=== PATIENT | male | born 1960 | race American Indian/Alaskan Native ===

== ENCOUNTER 2018-03-29 09:53 | Day surgery (SDC) | payer MEDICARE, OTHER ==
[2018-03-29] MEDS ORDERED: NACL 0.9% 1000 ML 1,000 ML IV SCH (10:00)
--- NOTE | 2018-03-29 11:44 | Anesthesia Day of Surgery ---
Anesthesia Day of Surgery - Day of Surgery Patient Examined: Yes Patient H&P Reviewed: Yes Patient is NPO: Yes Beta Blockers: No Cardiac Clearance: No Pulmonary Clearance: No
--- NOTE | 2018-03-29 11:45 | Anesthesia Consultation ---
Anesthesia Consult and Med Hx Date of service: 03/29/18 - Airway Anesthetic Teeth Evaluation: Good ROM Head & Neck: Adequate Mental/Hyoid Distance: Adequate Mallampati Class: Class IV Intubation Access Assessment: Possibly Difficult - Pulmonary Exam CTA: Yes - Cardiac Exam Cardiac Exam: No Murmur - Pre-Operative Health Status ASA Pre-Surgery Classification: ASA3 Proposed Anesthetic Plan: MAC - Pulmonary Hx Smoking: Yes Hx Pneumonia: Yes Hx Sleep Apnea: Yes - Cardiovascular System Hx Hypertension: Yes - Gastrointestinal Hx Gastroesophageal Reflux Disease: Yes - Endocrine Hx Non-Insulin Dependent Diabetes: Yes - Other Systems Hx Obesity: Yes
[2018-03-29] MEDS ORDERED: DIPRIVAN 10 MG/ML IV ONE ×2 (12:45→12:46)
[2018-03-29] MEDS ORDERED: WATER FOR IRRIG STERILE IR ONE (12:45)
[2018-03-29] MEDS ORDERED: VERSED ONE (12:45)
--- NOTE | 2018-03-29 13:35 | Operative Report ---
PROCEDURE: Esophagogastroduodenoscopy with biopsy. Thank you for the kind referral. This is a 57-year-old morbidly obese -[place] gentleman with an underlying history of diabetes mellitus type 2, hypertension, glaucoma, who has lately been having some abdominal pain and discomfort. EGD was done to assess for the problem. DESCRIPTION OF PROCEDURE: Procedure was done after getting informed consent with MAC anesthesia. Instrument was passed through the hypopharynx into the esophagus, which showed mild to moderate distal erosive esophagitis. Biopsy was done. The stomach showed antral erosion. The pylorus is patent. The duodenum in the first and second portion appeared normal. Biopsy was done from the gastric antrum, the angularis incisura as well as from the gastric body. He said to have some surgery done through the stomach previously, but no evidence of gastric bypass was noted. There was minimal bleeding from the biopsy sites. No complications associated with the procedure. ASSESSMENT: Moderate distal erosive esophagitis, GERD symptoms, gastric erosion gastritis. No peptic ulcer disease noted. Patent pylorus. Normal duodenum. PLAN: To treat the patient with PPI, have the patient avoid aspirin and aspirin-related products for the next few days and have the patient follow up in the office in 1-2 weeks' time. A colonoscopy will be done as part of colon polyp screening. Again, there was no significant bleeding or complications associated with the procedure and RNMaryan was in the room throughout the entirety of the procedure. JOB# [id number] SISI/ROJELIO
--- NOTE | 2018-03-29 13:37 | Procedure Note ---
Date of procedure: 03/29/18 Pre-op diagnosis: GERD/ Colon Polyp Screening Post-op diagnosis: other (Moderate,Erosive Esophagitis/ S/P Gastric Sleeve/ Gastric Erosion/Gastritis/ Normal colon Mucosa) Procedure: EGD with Biopsy and Colonoscopy Anesthesia: MAC Surgeon: DUNCAN NOE Estimated blood loss: minimal Pathology: list Specimen disposition: to lab Condition: stable Disposition: same day (Treat with PPI. Avoid aspirin and NSAID for 5 days and follow up in 1 to 2 weeks ([phone]).)
[2018-03-29 14:17] VITALS: BP 128/87
--- NOTE | 2018-03-29 14:22 | Operative Report ---
PROCEDURE: EGD. INDICATIONS: This is a 57-year-old morbidly obese -[place] gentleman with a prior history of gastric sleeve, diabetes mellitus type 2, hypertension, glaucoma, lately been having some abdominal pain and EGD. It was done to make sure there was not any associated peptic ulcer disease present. Procedure was done after getting informed consent with MAC anesthesia. Instrument was passed through the hypopharynx into the esophagus, which showed moderate distal erosive esophagitis. Biopsy was done from the distal esophagus. Stomach showed evidence of surgical changes, suggestive of a gastric sleeve in the proximal stomach. The antrum showed gastric erosion. Biopsy was done from the gastric antrum, the angle of incisura and gastric body. Pylorus was patent. Duodenum in the first and the second portion appeared normal. There was no evidence of any peptic ulcer disease noted. There was minimal bleeding from the biopsy sites. No complications associated with the procedure. ASSESSMENT: Gastroesophageal reflux disease symptoms, moderate distal erosive esophagitis, gastric erosion, gastritis, status post gastric sleeve. There was minimal bleeding from the biopsy sites. No complications associated with the procedure. The patient will be treated with PPI. Colonoscopy will be done to assess for possible colon polyp and the patient will be asked to follow up in the office in 1-2 weeks' time. Thank you for the kind referral and Maryan Barnard was in the room throughout the entirety of the procedure. JOB# [id number] SISI/ROJELIO
--- NOTE | 2018-03-29 15:47 | Operative Report ---
PROCEDURE: Colonoscopy. INDICATIONS: This is a 57-year-old obese -[place] gentleman who had a colonoscopy has an underlying history of diabetes, hypertension, glaucoma, prior history of gastric sleeve, who had a colonoscopy done as part of colon polyp screening. DESCRIPTION OF PROCEDURE: Procedure was done after getting informed consent with MAC anesthesia. Initial rectal exam was unremarkable. Instrument was passed through the rectum onto the cecum, which was identified by ileocecal valve and appendiceal orifice. Visualization was fair. Cecum, ascending colon, transverse colon, descending colon, and sigmoid showed normal mucosa. There was no evidence of any polyps, colitis, or diverticular disease. The rectum appeared normal in the retroverted view. There were no biopsies done. No bleeding associated with the procedure. No complications associated with the procedure. ASSESSMENT: Colon polyp screening: Normal colonic mucosa. PLAN: To resume previous medication. The patient had an EGD done previously, which had shown presence of erosive esophagitis, gastric erosion and gastritis. The patient will be treated with PPI and will be asked to avoid aspirin and aspirin-related products for the next few days and follow up in the office in 1-2 weeks' time. Thank you for the kind referral. RNMaryan was in the room for the entirety of the procedure. JOB# [id number] SISI/ROJELIO
== END 2018-03-29 09:54 | disposition home or self-care (01) ==
LOC: GIO 09:53
DX: Z12.11 Encounter for screening for malignant neoplasm of colon (principal); K21.0 Gastro-esophageal reflux disease with esophagitis; K29.50 Unspecified chronic gastritis without bleeding; K31.9 Disease of stomach and duodenum, unspecified; R10.84 Generalized abdominal pain; E11.9 Type 2 diabetes mellitus without complications; I10 Essential (primary) hypertension; G47.30 Sleep apnea, unspecified; E66.01 Morbid (severe) obesity due to excess calories; Z68.45 Body mass index [BMI] 70 or greater, adult; Z79.84 Long term (current) use of oral hypoglycemic drugs; Z79.899 Other long term (current) drug therapy; Z98.84 Bariatric surgery status; Z87.891 Personal history of nicotine dependence
CPT/HCPCS: 43239; 45378; 82962; 88305; 88342; J2250; J2704; J7030